=== PATIENT | male | born 1985 | race Hispanic/Latino ===

== ENCOUNTER 2018-04-26 21:15 | Emergency (ER) | payer OTHER ==
[2018-04-26 21:49] VITALS: BP 148/96; PULSE 98; RESP 20; TEMP 97.9; O2SAT 100
[2018-04-26] MEDS ORDERED: Tdap Vaccine 0.5 ml Vial (10-64 yrs) IM ONE ×2 (22:26→22:45)
--- NOTE | 2018-04-27 00:03 | C.PDOC ---
History Of Present Illness 32 year old male presents to the emergency department status-post using a lap grinder which kicked back and hit him in the nose prior to arrival. Patient complains of wound to the nose, and states that he has not had a recent tetanus vaccination. Time Seen by Provider: 04/26/18 22:15 Chief Complaint (Nursing): Abnormal Skin Integrity History Per: Patient History/Exam Limitations: no limitations Onset/Duration Of Symptoms: Hrs Current Symptoms Are (Timing): Still Present Location Of Injury: Anterior: Face Quality Of Symptoms: Other (laceration wound) Past Medical History Reviewed: Historical Data, Nursing Documentation, Vital Signs Vital Signs: Last Vital Signs Temp 97.9 F 04/26/18 21:45 Pulse 98 H 04/26/18 21:45 Resp 20 04/26/18 21:45 BP 148/96 H 04/26/18 21:45 Pulse Ox 100 04/26/18 21:45 - Medical History PMH: No Chronic Diseases Surgical History: No Surg Hx Family History: States: No Known Family Hx - Social History Hx Alcohol Use: Yes Hx Substance Use: No - Immunization History Hx Tetanus Toxoid Vaccination: No Hx Influenza Vaccination: No Hx Pneumococcal Vaccination: No Review Of Systems Constitutional: Negative for: Fever, Chills, Weakness Eyes: Negative for: Redness, Other (scleral icterus) ENT: Positive for: Other (laceration wound to nose) Cardiovascular: Negative for: Chest Pain Respiratory: Negative for: Cough, Shortness of Breath Gastrointestinal: Negative for: Nausea, Vomiting, Diarrhea Genitourinary: Negative for: Dysuria, Hematuria Musculoskeletal: Negative for: Back Pain Neurological: Negative for: Weakness, Numbness, Dizziness Physical Exam - Physical Exam Appears: Non-toxic, No Acute Distress Skin: Normal Color, Warm, Dry Head: Normacephalic Nose: No Epistaxis, No Deformity, No Septal Hematoma, Other (laceration to the distal aspect of the nose, bleeding only from wound) Tongue: Normal Appearing, No Laceration Lips: Normal Appearing, No Laceration Extremity: Normal ROM Neurological/Psych: Oriented x3, Normal Speech ED Course And Treatment O2 Sat by Pulse Oximetry: 100 (RA) Pulse Ox Interpretation: Normal Laceration - Laceration Repair Nose Wound Length (In cm): 2 Description Of Wound: Linear Wound Examination: Irrigated With Saline Wound Closure: Suture (5) Suture Technique And Material Used: Interrupted, Nylon (5-0) Medical Decision Making Medical Decision Making: Plan: Adacel Patient informed to return in 7 days for suture removal. Disposition Counseled Patient/Family Regarding: Diagnosis, Need For Followup - Disposition Disposition: HOME/ ROUTINE Disposition Time: 00:01 Condition: IMPROVED Additional Instructions: Return to the ER for suture removal in 7 days. Instructions: Laceration Repair With Stitches (DC) Forms: [facility] (Amharic), General Discharge Instructions - Clinical Impression Clinical Impression: Laceration of nose without complication - PA / WHOLESALE DIAMOND BROKER / Resident Statement MD/DO has reviewed & agrees with the documentation as recorded. - Scribe Statement The provider has reviewed the documentation as recorded by the Scribe (Supa Weathers) All medical record entries made by the Scribe were at my direction and personally dictated by me. I have reviewed the chart and agree that the record accurately reflects my personal performance of the history, physical exam, medical decision making, and the department course for this patient. I have also personally directed, reviewed, and agree with the discharge instructions and disposition.
== END 2018-04-27 | disposition home or self-care (01) ==
LOC: C.ER 21:15
DX: S01.21XA Laceration without foreign body of nose, initial encounter (principal); W22.8XXA Striking against or struck by other objects, initial encounter; Y92.89 Other specified places as the place of occurrence of the external cause; Y99.0 Civilian activity done for income or pay; Z23 Encounter for immunization